=== PATIENT | male | born 1970 | race Caucasian/White ===

== ENCOUNTER 2022-08-06 10:00 | Emergency (ER) | payer OTHER, SELFPAY ==
[2022-08-06 10:09] VITALS: BP 149/80; PULSE 90; RESP 16; TEMP 36.6; O2SAT 96
--- NOTE | 2022-08-06 10:34 | ED.SKABFB ---
HPI - Skin/Abscess/Foreign Bdy General Chief complaint: Skin/Abscess/Foreign Body Stated complaint: Laceration to Thumb Source: patient and RN notes reviewed History of Present Illness HPI narrative: 52-year-old male presents to urgent care with complaints of a laceration to his left thumb. Patient states he sustained this laceration prior to arrival when he was using a new utility knife on a piece of plastic. Patient states the knife slipped and cut his thumb. Patient denies any numbness or tingling. Denies any other injuries. Patient is up-to-date on tetanus vaccination. Some parts of this dictation were generated by voice recognition software and may contain typographical and/or grammatical inaccuracies. Related Data Home Medications Medication Instructions Recorded Confirmed atorvastatin 20 mg tablet 20 mg PO DAILY 08/06/22 08/06/22 insulin glargine-yfgn 100 unit/mL See Rx Instructions .Route .COMPLEX 08/06/22 08/06/22 (3 mL) subcutaneous pen (Semglee (insulin glargine-yfgn) Pen) metformin 500 mg tablet 500 mg PO BID 08/06/22 08/06/22 prednisone 1 mg tablet 2 mg PO DAILY 08/06/22 08/06/22 prednisone 5 mg tablet 5 mg PO DAILY 08/06/22 08/06/22 Allergies Allergy/AdvReac Type Severity Reaction Status Date / Time Penicillins Allergy Unknown Verified 08/06/22 10:18 Review of Systems Review of Systems: CONSTITUTIONAL: Denies fever, chills, or sweats. EYES: Denies visual changes, redness, or discharge. ENT: Denies otalgia and sore throat CARDIOVASCULAR: Denies chest pain, palpitations, or edema. RESPIRATORY: Denies cough or dyspnea. GASTROINTESTINAL: Denies abdominal pain, nausea, vomiting, or diarrhea. GENITOURINARY: Denies dysuria or hematuria. SKIN: Laceration to thumb MUSCULOSKELETAL: Denies back pain, joint pain, or myalgia. NEUROLOGIC: Denies headache, numbness, or weakness. PMFSH Comments At the time of my signature, I reviewed and agree with the nursing past medical, surgical, social, and family history. There is no relevant family history pertinent to the patient complaint. Exam Narrative: GENERAL: This is a well-nourished, well-developed patient, in no apparent distress. HEAD: normocephalic, atraumatic. EYES: PERRL. Sclera clear/white. Vision is grossly intact. EARS: External ears normal, auditory canals clear and without drainage, TMs normal without perforation. Hearing grossly intact. NOSE: External nose normal with no obvious nasal discharge, nares without redness, no rhinorrhea. THROAT: Mucous membranes moist, posterior pharynx clear. NECK: Neck supple, non-tender without lymphadenopathy, masses or thyromegaly. CARDIOVASCULAR: Regular rate and rhythm without murmurs, gallops, or rubs. RESPIRATORY: Clear to auscultation. Breath sounds equal bilaterally. No wheezes, rales, or rhonchi. GASTROINTESTINAL: Abdomen soft, non-tender, nondistended. Bowel sounds are active. No hepato-splenomegaly, or palpable masses. No guarding. SKIN: 2 cm linear, laceration of the left thumb NEURO: awake, alert, and oriented to person, place and time. There were no obvious focal neurologic abnormalities. EXTREMITIES: No clubbing, cyanosis, or edema. No joint tenderness, effusion, or edema noted. BACK: Nontender without deformity or crepitance. No flank tenderness. Course Course Level of Care: Express Care Visit Vital Signs Vital signs: Vital Signs Temperature 97.8 F 08/06/22 10:09 Pulse Rate 90 08/06/22 10:09 Respiratory Rate 16 08/06/22 10:09 Blood Pressure 149/80 H 08/06/22 10:09 Pulse Oximetry 96 08/06/22 10:09 Oxygen Delivery Room Air 08/06/22 10:09 Temperature 97.8 F 08/06/22 10:09 Pulse Rate 90 08/06/22 10:09 Respiratory Rate 16 08/06/22 10:09 Blood Pressure 149/80 H 08/06/22 10:09 Pulse Oximetry 96 08/06/22 10:09 Oxygen Delivery Room Air 08/06/22 10:09 Reviewed. Procedures Laceration Laceration 1: Date: 08/06/22 Time: 10:45 Site: upper e
== END 2022-08-06 11:00 | disposition home or self-care (01) ==
PROVIDERS: Emergency Provider Nurse Practitioner Family; PCP Internal Medicine
DX: S61.012A Laceration without foreign body of left thumb without damage to nail, initial encounter (principal); Z79.4 Long term (current) use of insulin; W26.0XXA Contact with knife, initial encounter
CPT/HCPCS: 12001; 99212; G0463